=== PATIENT | male | born 1965 | race Caucasian/White ===

== ENCOUNTER 2021-05-01 14:28 | Emergency (ER) | payer MEDICAID ==
[~2021-05-01] VITALS: Ht 165.1 cm; Wt 77.0 kg
[2021-05-01] MEDS ORDERED: ACETAMINOPHEN 325MG TABLET PO ONE (16:15)
[2021-05-01] MEDS ORDERED: IBUPROFEN 600MG TABLET PO ONE (16:15)
[2021-05-01 16:23] VITALS: BP 124/64
[2021-05-01] MEDS ORDERED: TOPUD MT (17:27)
[2021-05-01] MEDS ORDERED: NAPR-1176 MT (17:27)
== END 2021-05-01 17:41 | disposition home or self-care (01) ==
LOC: ER 14:28
DX: S80.02XA Contusion of left knee, initial encounter (principal); V18.0XXA Pedal cycle driver injured in noncollision transport accident in nontraffic accident, initial encounter; Y93.55 Activity, bike riding; Y92.488 Other paved roadways as the place of occurrence of the external cause
CPT/HCPCS: 73562; 99283